=== PATIENT | female | born 1945 | race Caucasian/White ===

== ENCOUNTER 2017-02-09 05:26 | Observation (INO) | payer OTHER ==
[2017-02-09] VITALS (9 sets, daily range): BP systolic 119–148; BP diastolic 48–79
[~2017-02-09] VITALS: Ht 160 cm; Wt 81.6 kg
--- NOTE | ~2017-02-09 | O ---
[facility] [place] [address] OPERATIVE REPORT Name: SUSAN GREENE Room #: [facility].Radha#: [id number] Admission: 02/09/17 Attend Phys: Memo Hatfield MD Discharge: Date of : 49 Report #: [id number] THIS REPORT FOR: //name// CC: Memo Hatfield Purnima Watts DATE OF SERVICE: 02/09/2017 PREOPERATIVE DIAGNOSIS: Left foot subtalar osteoarthritis. POSTOPERATIVE DIAGNOSIS: Left foot subtalar osteoarthritis. PROCEDURE: Left foot subtalar arthrodesis. SURGEON: Memo Hatfield M.D. ANESTHESIA: General. ESTIMATED BLOOD LOSS: Minimal. DRAINS: No drains. TOURNIQUET TIME: One hour. DESCRIPTION OF PROCEDURE: The patient was brought to the operating room, where she was placed under general anesthesia. Once under adequate general anesthesia, her left lower extremity was prepped and draped in a sterile manner. The extremity was elevated, exsanguinated and tourniquet placed to 300 mmHg. A lateral incision over the sinus tarsi was then made. This was dissected down through the soft tissue to the extensor digitorum and the overlying fat pad from the sinus tarsi. Once this was elevated, exposure was made of the joint. Any cartilage was then removed from the chondral surfaces of the joint utilizing osteotomes, curettes and a dakotah. Once all the cartilage was removed, the joint was then prepared with osteotomes and a dakotah to good bleeding subchondral bone. A small infused and demineralized matrix allograft putty was then placed into the joint and subsequent to this, three 7.4-mm cannulated screws were placed across the joint for fixation. These were then placed under fluoroscopic guidance. Excellent fixation and alignment was achieved in this manner as verified under fluoroscopy. The wound was irrigated copiously and closed with 2-0 Vicryl in the deep and subcutaneous tissues and marietta were used for the skin. The wounds were dressed with Xeroform, 4 x 4s and a sterile soft compressive dressing was placed. Tourniquet was let down at approximately 1 hour. Toes were pink and warm with good capillary refill. There were no [facility] [address] [place] [address] OPERATIVE REPORT Name: SUSAN GREENE Room #: [facility].#: [id number] Admission: 02/09/17 Attend Phys: Memo Hatfield MD Discharge: Date of : 49 Report #: [id number] complications from the procedure. The patient tolerated the procedure well and went to the recovery room without incident. <ELECTRONICALLY SIGNED> By: Memo Hatfield MD 02/10/17 0830 [id number] [id number] Memo Hatfield MD /nt
--- NOTE | ~2017-02-09 | EKG ---
[address] [place] [place] [address] ELECTROCARDIOGRAM REPORT Name: SUSAN GREENE Room #: 410-P [facility] M.R.#: [id number] Admission: 02/09/17 Attend Phys: Memo Hatfield MD Discharge: Date of : 49 Report #: [id number] THIS REPORT FOR: //name// [facility] Test Date: 2017-02-09 Test Time: 06:20:42 Pat Name: SUSAN GREENE Department: Room: 410 P Gender: F [employer] Plant Operator: MADIHA : 1945 Requested By: Sim Milan Order Number: [id number] MD: Shen Bolton Measurements Intervals [place] Rate: 87 P: 74 AR: 159 QRS: -27 QRSD: 94 T: 35 QT: 364 QTc: 438 Interpretive Statements Sinus rhythm Abnormal R-wave progression, late transition Inferior infarct, old Compared to ECG 05/05/1992 10:56:00 criteria for inferior infarct are now present Electronically Signed On 02-10-2017 12:58:32 CDT by Shen Bolton [email or web address] <ELECTRONICALLY SIGNED> By: Shen Bolton MD, [facility] 02/10/17 1258 0620 Shen Bolton MD, [facility] /EPI
--- NOTE | ~2017-02-09 | EKG ---
[address] [address] ELECTROCARDIOGRAM REPORT Name: SUSAN GREENE Room #: 150-8 [facility].R.#: [id number] Admission: 02/09/17 Attend Phys: Memo Hatfield MD Discharge: Date of : 49 Report #: [id number] THIS REPORT FOR: //name// [facility] Test Date: 2017-02-09 Test Time: 06:20:42 Pat Name: SUSAN GREENE Department: Room: 150 8 Gender: F [employer] Sales Agent: MADIHA : 1945 Requested By: Sim Milan Order Number: [id number] MD: Measurements Intervals [place] Rate: 87 P: 74 LA: 159 QRS: -27 QRSD: 94 T: 35 QT: 364 QTc: 438 Interpretive Statements Sinus rhythm Consider left atrial enlargement Abnormal R-wave progression, late transition Inferior infarct, old Compared to ECG 05/05/1992 10:56:00 Myocardial infarct finding now present [email or web address] By: 0620 0620 Epiphany EpiphanyMD /EPI
[~2017-02-09 05:26] MED LIST: ASPIR 8181 MG PO; LANTUS100 UNIT/M SUBQ; LOSARTAN PO; METFORMIN HCL500 MG PO; MULTI VITAMIN1 EACH PO; NOVOLOG FL100 UNIT/M SC; PRAVASTATIN SOD20 MG PO; VENTOLIN HFA 1818 GM INH
[2017-02-10 03:25] VITALS: BP 119/71
[2017-02-10 06:04] LABS: HEMATOCRIT 34.8 % (37.0-47.0); HEMOGLOBIN 11.5 gm/dL (12.0-15.0)
[2017-02-10 06:20] LABS: POTASSIUM 4.4 mmol/L (3.5-5.1)
[2017-02-10 07:14] VITALS: BP 115/61
[2017-02-10] MEDS ORDERED: PERCOCET 7.5-31 EACH PO (08:16)
[2017-02-10] MEDS ORDERED: ASA5UEC PO (08:16)
[2017-02-10 11:34] VITALS: BP 132/62
[2017-02-10 14:42] VITALS: BP 132/62
[2017-02-10] MEDS ORDERED: TRAMADOL 50 MG50 MG PO ×2 (14:58→14:59)
[2017-02-10 15:59] VITALS: BP 138/70
== END 2017-02-10 16:25 | disposition home or self-care (01) ==
LOC: OR 05:26 → TBA 05:26 → OR 10:59 → 4N 11:00 → OR 15:21 → 4N 02-10 16:25
PROVIDERS: Orthopaedic Surgery Foot and Ankle Surgery
DX: M19.072 Primary osteoarthritis, left ankle and foot (principal); E11.9 Type 2 diabetes mellitus without complications; I10 Essential (primary) hypertension; E78.5 Hyperlipidemia, unspecified; J45.909 Unspecified asthma, uncomplicated